=== PATIENT | male | born 1965 | race Hispanic/Latino ===

== ENCOUNTER 2020-12-23 10:53 | Emergency (ER) | payer SELFPAY ==
[2020-12-23] MEDS ORDERED: Ibuprofen 800 MG TAB ONE (11:58)
== END 2020-12-23 12:05 | disposition home or self-care (01) ==
LOC: ERS 10:53
DX: M17.12 Unilateral primary osteoarthritis, left knee (principal); Z87.891 Personal history of nicotine dependence

== ENCOUNTER 2021-11-18 10:17 | Emergency (ER) | payer SELFPAY ==
[2021-11-18] MEDS ORDERED: Boostrix 0.5 ML (Tdap) VIAL ONE (10:54)
[2021-11-18] MEDS ORDERED: CEFAZOLIN 2 GM VIAL ONE (10:54)
[2021-11-18] MEDS ORDERED: Morphine 4 MG/ML VIAL ONE ×2 (10:54→12:39)
[2021-11-18 11:36] LABS: SARS-CoV-2 NAA Rapid Test Not Detected (NotDetected)
== END 2021-11-18 12:48 | disposition short-term general hospital (02) ==
LOC: ERS 10:17
DX: S68.012A Complete traumatic metacarpophalangeal amputation of left thumb, initial encounter (principal); Z20.822 Contact with and (suspected) exposure to COVID-19; Z87.891 Personal history of nicotine dependence; W27.0XXA Contact with workbench tool, initial encounter
CPT/HCPCS: 90471; 90715; 96365; 96375; 96376; J0690; J2270; U0002